=== PATIENT | female | born 1985 | race Caucasian/White ===

== ENCOUNTER 2016-09-15 00:07 | Inpatient (IN) | payer MEDICAID, OTHER ==
[~2016-09-15] VITALS: Ht 152.4 cm; Wt 72.2 kg
[2016-09-15 00:23] VITALS: Ht 152.4 cm; Wt 72.2 kg
[2016-09-15 00:24] VITALS: BP 98/53; PULSE 66; RESP 16
[2016-09-15] MEDS ORDERED: TERBUTALINE 1 MG/ML INJ SC ONE (01:00)
[2016-09-15 01:10] LABS: ADD UMIC YES; UR ASCORBIC ACID NEGATIVE (NEGATIVE); UR BACTERIA FEW /HPF (NONE SEEN); UR BILIRUBIN (Dip) NEGATIVE (NEGATIVE); UR BLOOD (Dip) NEGATIVE (NEGATIVE); UR CLARITY CLEAR (CLEAR); UR COLOR STRAW (YELLOW); UR GLUCOSE (Dip) NEGATIVE (NEGATIVE); UR KETONES (Dip) NEGATIVE (NEGATIVE); UR LEUKOCYTE ESTERASE (Dip) TRACE Leu/ul (NEGATIVE); UR NITRITE (Dip) NEGATIVE (NEGATIVE); UR RBC 0 /HPF (0-5); UR SPECIFIC GRAVITY (Dip) 1.003 (1.003-1.030); UR TOTAL PROTEIN (Dip) NEGATIVE (NEGATIVE); UR UROBILINOGEN (Dip) NEGATIVE (NEGATIVE)
[2016-09-15 01:26] LABS: BASOPHILS % 0.4 % (0.0-2.0); EOSINOPHILS # 0.2 10^3/ul (0.0-0.5); EOSINOPHILS % 3.3 % (0.0-7.0); HEMATOCRIT 28.7 % (37.0-47.0); HEMOGLOBIN 9.7 g/dl (12.0-16.0); LYMPHOCYTES # 1.8 10^3/ul (0.8-2.9); LYMPHOCYTES % 30.8 % (15.0-51.0); MEAN CORPUSCULAR HEMOGLOBIN 30.6 pg (29.0-33.0); MEAN CORPUSCULAR HGB CONC 33.8 g/dl (32.0-37.0); MEAN CORPUSCULAR VOLUME 90.5 fl (82.0-101.0); MEAN PLATELET VOLUME 10.7 fl (7.4-10.4); MONOCYTE # 0.6 10^3/ul (0.3-0.9); MONOCYTES % 10.9 % (0.0-11.0); NEUTROPHIL # 3.1 10^3/ul (1.6-7.5); NEUTROPHILS % 54.2 % (39.0-77.0); PLATELET COUNT 175 10^3/UL (140-415); RED BLOOD COUNT 3.17 10^6/ul (4.20-5.40); RED CELL DISTRIBUTION WIDTH 12.6 % (11.5-14.5); WHITE BLOOD COUNT 5.7 10^3/ul (4.8-10.8)
[2016-09-15] MEDS ORDERED: LACTATED RINGER'S 1,000 ML IV PRN ×2 (02:00→04:30)
--- NOTE | 2016-09-15 02:00 | PN ---
Triage Information Date/Time Reason for visit: Uterine contractions Weeks of Gestation 35 weeks /Para Diabetes: none Hypertention: none Objective Vital Signs Date Time Temp Pulse Resp B/P Pulse Ox O2 Delivery O2 Flow Rate FiO2 09/15/16 00:24 98.0 66 16 98/53 Room Air Heart Rate: 130's Heart Rate Comments Category I Contractions: >10 Minutes Apart Exam Cervix 2-3 cm Results/Medications Result Diagram: 09/15/16 0100 Results 24 hrs Laboratory Tests Test 09/15/16 00:30 09/15/16 01:00 Urine Color STRAW Urine Clarity CLEAR Urine pH 7.0 Urine Specific [place] 1.003 Urine Ketones NEGATIVE Urine Nitrite NEGATIVE Urine Bilirubin NEGATIVE Urine Urobilinogen NEGATIVE Urine Leukocyte Esterase TRACE A Urine Microscopic RBC 0 Urine Microscopic WBC 0 Urine Bacteria FEW A Urine Hemoglobin NEGATIVE Urine Glucose NEGATIVE Urine Total Protein NEGATIVE White Blood Count 5.7 Red Blood Count 3.17 L Hemoglobin 9.7 L Hematocrit 28.7 L Mean Corpuscular Volume 90.5 Mean Corpuscular Hemoglobin 30.6 Mean Corpuscular Hemoglobin Concent 33.8 Red Cell Distribution Width 12.6 Platelet Count 175 Mean Platelet Volume 10.7 H Neutrophils % 54.2 Lymphocytes % 30.8 Monocytes % 10.9 Eosinophils % 3.3 Basophils % 0.4 Nucleated Red Blood Cells % 0.0 Neutrophils # 3.1 Lymphocytes # 1.8 Monocytes # 0.6 Eosinophils # 0.2 Basophils # 0.0 Nucleated Red Blood Cells # 0.0 Disposition: Observation Assessment/Plan IV hydration Continue to monitor. JINNY WALKER MD Sep 15, 2016 02:00
--- NOTE | 2016-09-15 04:18 | TRIAGE ---
OB Triage Datetime Report Generated by CPN: 09/15/2016 04:17 Datetime: 09/15/2016 04:00 Labor Evaluation Frequency: X1 Monitor Mode: External Pattern: Normal: <= 5 Contractions in 10 Minutes Heart Rate FHR Baseline Rate: 130 Monitor Mode: External US FHR Baseline Changes: No Baseline Change Variability: Moderate 6-25 bpm Accelerations: 15X15 Category: Category I Datetime: 09/15/2016 03:54 Vaginal Exam Dilatation (cms): 3.5 Effacement (%): 50 Station: -3 Exam By: dr. delshad Datetime: 09/15/2016 03:30 Labor Evaluation Frequency: X1 Monitor Mode: External Pattern: Normal: <= 5 Contractions in 10 Minutes Heart Rate FHR Baseline Rate: 135 Monitor Mode: External US FHR Baseline Changes: No Baseline Change Variability: Moderate 6-25 bpm Decelerations: None Datetime: 09/15/2016 02:30 Labor Evaluation Frequency: X1 Monitor Mode: External Duration (sec)2399: 60 Pattern: Normal: <= 5 Contractions in 10 Minutes Heart Rate FHR Baseline Rate: 140 Monitor Mode: External US FHR Baseline Changes: No Baseline Change Variability: Moderate 6-25 bpm Decelerations: None Datetime: 09/15/2016 01:53 Vaginal Exam Dilatation (cms): 2.5 Effacement (%): 60 Station: -3 Exam By: DR.DELSHAD Datetime: 09/15/2016 01:30 Labor Evaluation Frequency: X3 Monitor Mode: External Duration (sec)2399: 60 Pattern: Normal: <= 5 Contractions in 10 Minutes Heart Rate FHR Baseline Rate: 145 Monitor Mode: External US FHR Baseline Changes: No Baseline Change Variability: Moderate 6-25 bpm Accelerations: 15X15 Decelerations: None Category: Category I Datetime: 09/15/2016 01:09 Time of Arrival: 09/15/2016 00:05 EGA: 35.5 Arrived By: Ambulatory Arrived From: Home Chief Complaint: LOWER ABDOMINAL PAIN Movement: Present Contractions: Irregular Time Contractions Began: 09/14/2016 22:00 Rupture of Membranes: Denies Vaginal Bleeding: None Vaginal Discharge: Denies Recent Sexual Intercouse: Denies Abdominal Trauma: Not Applicable Patient Complaints: Contractions Time Provider Notified: 09/15/2016 00:50 Provider Notified: Initial Plan: EFM, VE, UA _ URINE CULTURE, CBC, TERB IF NEEDED Datetime: 09/15/2016 00:31 Membrane Status: Intact Datetime: 09/15/2016 00:30 Vaginal Exam Dilatation (cms): 1.0 Effacement (%): 60 Station: -3 Datetime: 09/15/2016 00:27 Stage of : OB Triage Maternal Assessment Level of Consciousness: Fully Conscious DTR's/Clonus: DTRs 2+; No Clonus Headache: Denies Blurred Vision: No Respiratory Effort: Unlabored; Regular Rhythm; Equal Expansion Breath Sounds, Left: Clear and Equal Breath Sounds, Right: Clear and Equal Nausea/Vomiting: Denies RUQ Epigastric Pain: Denies Facial Edema: None Temperature Route: Axillary Fall Risk Assessment History of Falling: (0) No Secondary Diagnosis: (0) No Ambulatory Aid: (0) Bedrest/Nurse Assist IV Therapy: (0) No Gait: (0) Normal/Bedrest/Immobile Mental Status: (0) Oriented to Own Ability Fall Score: 0 Fall Risk Score Definition: No Risk: No action required Datetime: 09/15/2016 00:24 Labor Evaluation Frequency: X1 Monitor Mode: External Duration (sec)2399: 7 Quality: Mild Pattern: Normal: <= 5 Contractions in 10 Minutes Resting Tone [place]: Relaxed Heart Rate FHR Baseline Rate: 125 Monitor Mode: External US FHR Baseline Changes: No Baseline Change Variability: Moderate 6-25 bpm Accelerations: 15X15 Decelerations: None Category: Category I
[2016-09-15] MEDS ORDERED: OXYTOCIN 30 UNITS/LR 500 ML IV SCH ×2 (04:30)
[2016-09-15] MEDS ORDERED: IBUPROFEN 600 MG TAB PO PRN (04:30)
[2016-09-15] MEDS ORDERED: MAGNESIUM SULFATE 4 GM/100 ML 100 ML IV SCH (04:30)
[2016-09-15] MEDS ORDERED: LIDOCAINE 1% (MPF) 30 ML INJ INJ PRN (04:30)
[2016-09-15] MEDS ORDERED: CARBOPROST 250 MCG INJ IM PRN (04:30)
[2016-09-15] MEDS ORDERED: METHYLERGONOVINE 0.2 MG INJ IM PRN (04:30)
[2016-09-15] MEDS ORDERED: OXYTOCIN 30 UNITS/LR 500 ML IV PRN (04:30)
[2016-09-15] MEDS ORDERED: BUTORPHANOL 2 MG INJ IV PRN (04:30)
[2016-09-15] MEDS ORDERED: CA GLUCONATE (GM) 10% 10ML INJ IV PRN (04:30)
[2016-09-15] MEDS ORDERED: MISOPROSTOL 200 MCG TAB PR PRN (04:30)
[2016-09-15] MEDS: LACTATED RINGER'S 1,000 ML IV SCH ×2 (04:47→20:03)
[2016-09-15] MEDS: BETAMET NA PHOS/AC(6 MG/ML) 5ML INJ IM SCH (05:13)
[2016-09-15 05:24] LABS: INR 0.91; PARTIAL THROMBOPLASTIN TIME 27.1 Sec (25.0-35.0); PROTIME 12.3 Sec (12.2-14.2)
[2016-09-15] MEDS: MAGNESIUM SULFATE 20 GM/500 ML 500 ML IV SCH ×2 (05:24→14:56)
[2016-09-15] MEDS ORDERED: AMPICILLIN 2 GM/NS (PMX) 100 ML IV ONE (06:00)
[2016-09-15] MEDS ORDERED: AMPICILLIN 1 GM/NS (PMX) 50 ML IV SCH (10:00)
--- NOTE | 2016-09-15 19:14 | HP ---
Date/Time of Note Date/Time of Note DATE: 09/15/16 TIME: 19:06 OB - History Hx of Present Free Text/Dictation 31 y.o at 35w6d was admitted for PTL. VE 2-3cm uterine contractions every 10min 1st bmz given 0500 09/15/16 magnesium sulfate were also initiated Chief Complaint: uterine contractions Estimated Due Date: Oct 15, 2016 : 4 Para: 3 Spontaneous : 0 Therapeutic : 0 Care: Good Care Ultrasounds: Normal mid trimester US Obstetrical Complications: None Medical Complications: None Past Family/Social History * Past Medical, Surgical, Family and Obstetric Histories reviewed from chart. Blood Type: O+ Rubella: immune RPR/VDRL: Negative GBS Status: Unknown HBsAG: Negative OB Admission Exam Vital Signs Vital Signs Vital Signs Date Time Temp Pulse Resp B/P Pulse Ox O2 Delivery O2 Flow Rate FiO2 09/15/16 00:24 98.0 66 16 98/53 Room Air Physical Exam HEENT: WNL Heart: Rhythm Normal Lungs: Clear, Equal Abdomen: WNL Extremities: Normal Reflexes: Normal Cervical Dilatation: 3cm Effacement: 50% Station: -3 Membranes: Intact Amniotic Fluid: Unevaluable Heart Rate: 130's Accelerations: Accelerations Present Decelerations: No Decelerations Varibility: Moderate Contractions on Admission: 6-10 Minutes Apart Intensity: Mild Last 72 hours Lab Results CBC & BMP 09/15/16 01:00 Magnesium Level Test 09/15/16 11:56 09/15/16 18:11 Magnesium Level 5.1 *H 5.1 *H OB Assessment/Plan Reason for admission: labor Other Assessment: IUP 35w6d Other plan: bmzx2 mg sulfate JOHN NAYLOR MD Sep 15, 2016 19:13
[2016-09-15] MEDS: ACETAMINOPHEN 325 MG TAB PO PRN (21:11)
[2016-09-16] MEDS: MAGNESIUM SULFATE 20 GM/500 ML 500 ML IV SCH ×3 (00:14→20:47)
[2016-09-16] MEDS: BETAMET NA PHOS/AC(6 MG/ML) 5ML INJ IM SCH (05:48)
[2016-09-16] MEDS: LACTATED RINGER'S 1,000 ML IV SCH ×2 (08:25→23:43)
--- NOTE | 2016-09-16 19:53 | PN ---
Date/Time of Note Date/Time of Note DATE: 09/16/16 TIME: 19:50 OB Subjective Subjective Subjective no more uterine conrations OB Objective Objective Objective EFM reactive no sig uerine contration OB Assessment/Plan Other Assessment: IUP 36w1d PTL s/p bmzx2 plan will d/c magnesium sulfata in am JOHN NAYLOR MD Sep 16, 2016 19:53
[2016-09-16] MEDS: ACETAMINOPHEN 325 MG TAB PO PRN (23:42)
[2016-09-17] MEDS: LACTATED RINGER'S 1,000 ML IV SCH (06:21)
== END 2016-09-17 17:23 | disposition home or self-care (01) | DRG 780 ==
LOC: L-D 00:07 → OBT 00:07 → L-D 04:00
PROVIDERS: ADMIT Obstetrics & Gynecology; ATTEND Obstetrics & Gynecology
DX: O47.03 False labor before 37 completed weeks of gestation, third trimester (principal); Z3A.35 35 weeks gestation of pregnancy
CPT/HCPCS: 36415; 81001; 83735; 85025; 85610; 85730; 86592; 86900; 86901; 87086; 87340; 96360; 96372; G0463; J0290; J0702; J3105; J3475; J7120

== ENCOUNTER 2016-09-27 17:28 | Outpatient (CLI) | payer OTHER ==
[~2016-09-27] VITALS: Ht 152.4 cm; Wt 70.9 kg
[2016-09-27 17:54] VITALS: BP 109/58; PULSE 70; RESP 20
--- NOTE | 2016-09-27 18:22 | RADRPT ---
PROCEDURE: US biophysical profile. CLINICAL INDICATION: Leaking amniotic fluid. TECHNIQUE: Multiple sonographic images of the uterus were obtained. The images were revi ewed on a PACS workstation. COMPARISON: No prior studies are available for comparison. FINDINGS: There is a single live intrauterine gestation. heart rate is 136 beats per minute. The position is cephalic. The placenta is anterior right grade II with no abruption or previa. The FARHANA is 11.0 cm. (Normal = 5-20 cm.) Breathing Movement: 2 Gross Body Movement: 2 Tone: 2 Qualitative Amniotic Fluid Volume: 2 TOTAL: 8 IMPRESSION: 1. The biophysical score is 8/8. RPTAT: QQ .Harpreet Dumont MD, MD Date Time Electronically viewed and signed by .Harpreet Dumont MD, on 09/27/2016 18:22 .R/
[2016-09-27 18:43] VITALS: Ht 152.4 cm; Wt 70.9 kg
--- NOTE | 2016-09-27 19:24 | PN ---
Triage Information Date/Time 09/27/16 Reason for visit: SROM Weeks of Gestation 37w2d /Para Hypertention: none Additional information leaking fluid since tuesday Objective Vital Signs Date Time Temp Pulse Resp B/P Pulse Ox O2 Delivery O2 Flow Rate FiO2 09/27/16 17:54 99.0 70 20 109/58 98 Room Air Heart Rate: 120's Contractions: >10 Minutes Apart Exam ROM plus heg spec exam neg for pooling Results/Medications Results 24 hrs Laboratory Tests Test 09/27/16 18:35 Membranes Rupture NEGATIVE Imaging Results BPP 09/14 FARHANA 11.3 Disposition: Discharge Assessment/Plan RTH PRN WITH ROUTINE INSTRUCTIONS JOHN NAYLOR MD Sep 27, 2016 19:23
== END 2016-09-27 19:33 | disposition home or self-care (01) ==
LOC: OBT 17:28 → L-D 17:28 → OBT 19:33
PROVIDERS: ATTEND Obstetrics & Gynecology
DX: O47.1 False labor at or after 37 completed weeks of gestation (principal); Z3A.37 37 weeks gestation of pregnancy
CPT/HCPCS: 76818; 84112; G0463

== ENCOUNTER 2016-10-08 12:00 | Inpatient (IN) | payer OTHER ==
[~2016-10-08] VITALS: Ht 152.4 cm; Wt 71.0 kg
[2016-10-08 14:45] VITALS: BP 100/50; PULSE 63; RESP 20
[2016-10-08 14:48] VITALS: Ht 152.4 cm; Wt 71.0 kg
[2016-10-08] MEDS: LACTATED RINGER'S 1,000 ML IV SCH ×2 (14:58→22:15)
[2016-10-08] MEDS ORDERED: LACTATED RINGER'S 1,000 ML IV PRN (15:00)
[2016-10-08] MEDS ORDERED: CARBOPROST 250 MCG INJ IM PRN (15:00)
[2016-10-08] MEDS ORDERED: LIDOCAINE 1% (MPF) 30 ML INJ INJ PRN (15:00)
[2016-10-08] MEDS ORDERED: OXYTOCIN 30 UNITS/LR 500 ML IV SCH ×3 (15:00)
[2016-10-08] MEDS ORDERED: IBUPROFEN 600 MG TAB PO PRN (15:00)
[2016-10-08] MEDS ORDERED: METHYLERGONOVINE 0.2 MG INJ IM PRN (15:00)
[2016-10-08] MEDS ORDERED: MINERAL OIL LIGHT 10 ML VIAL TOP PRN (15:00)
[2016-10-08] MEDS ORDERED: OXYTOCIN 30 UNITS/LR 500 ML IV PRN (15:00)
[2016-10-08] MEDS ORDERED: MISOPROSTOL 200 MCG TAB PR PRN (15:00)
[2016-10-08 16:11] LABS: BASOPHILS % 0.3 % (0.0-2.0); EOSINOPHILS # 0.1 10^3/ul (0.0-0.5); EOSINOPHILS % 0.9 % (0.0-7.0); HEMATOCRIT 31.1 % (37.0-47.0); HEMOGLOBIN 10.3 g/dl (12.0-16.0); LYMPHOCYTES # 1.2 10^3/ul (0.8-2.9); LYMPHOCYTES % 18.7 % (15.0-51.0); MEAN CORPUSCULAR HEMOGLOBIN 29.8 pg (29.0-33.0); MEAN CORPUSCULAR HGB CONC 33.1 g/dl (32.0-37.0); MEAN CORPUSCULAR VOLUME 89.9 fl (82.0-101.0); MEAN PLATELET VOLUME 10.9 fl (7.4-10.4); MONOCYTE # 0.5 10^3/ul (0.3-0.9); MONOCYTES % 7.5 % (0.0-11.0); NEUTROPHILS % 72.3 % (39.0-77.0); PLATELET COUNT 184 10^3/UL (140-415); RED BLOOD COUNT 3.46 10^6/ul (4.20-5.40); RED CELL DISTRIBUTION WIDTH 13.3 % (11.5-14.5); WHITE BLOOD COUNT 6.4 10^3/ul (4.8-10.8)
[2016-10-08 16:27] LABS: INR 0.91; PARTIAL THROMBOPLASTIN TIME 26.3 Sec (25.0-35.0); PROTIME 12.2 Sec (12.2-14.2)
[2016-10-09] MEDS: LACTATED RINGER'S 1,000 ML IV SCH ×2 (06:16→09:15)
--- NOTE | 2016-10-09 06:18 | HP ---
Date/Time of Note Date/Time of Note DATE: 10/09/16 TIME: 06:11 OB - History Hx of Present Free Text/Dictation 30y.o at 39weeks for induction of labor. during the course had episodes of labor which was resolved. previous all ending up delivered at , GBS neg VE 4cm/70%/-2 admitted for pitocin aug Chief Complaint: induction Estimated Due Date: Oct 15, 2016 : 4 Para: 3 Spontaneous : 0 Therapeutic : 0 Care: Good Care Ultrasounds: Normal mid trimester US Obstetrical Complications: None Medical Complications: None Past Family/Social History * Past Medical, Surgical, Family and Obstetric Histories reviewed from chart. Blood Type: O+ Rubella: immune RPR/VDRL: Negative GBS Status: Negative HBsAG: Negative OB Admission Exam Vital Signs Vital Signs Vital Signs Date Time Temp Pulse Resp B/P Pulse Ox O2 Delivery O2 Flow Rate FiO2 10/08/16 14:45 98.0 63 20 100/50 97 Room Air Physical Exam HEENT: WNL Heart: Rhythm Normal Lungs: Clear, Equal Abdomen: WNL Extremities: Normal Reflexes: Normal Cervical Dilatation: 4cm Effacement: 75% Station: -2 Membranes: Intact Amniotic Fluid: Unevaluable Heart Rate: 120's Accelerations: Accelerations Present Decelerations: No Decelerations Varibility: Moderate Contractions on Admission: 6-10 Minutes Apart Intensity: Mild Last 72 hours Lab Results CBC & BMP 10/08/16 14:10 OB Assessment/Plan Reason for admission: induction of labor Induction Method: per Pitocin Protocol JOHN NAYLOR MD Oct 09, 2016 06:17
--- NOTE | 2016-10-09 07:03 | LDN ---
Date/Time of Note Date/Time of Note DATE: 10/09/16 TIME: 07:01 Delivery Summary desire to have tubal sterilization Weeks of Gestation 39weeks Placenta Delivered: Spontaneously Meconium: none Episiotomy: No Perineal laceration: 1 Laceration repair: 000 ch gut Anesthesia type: None Estimated blood loss: 50 Sponge & Needle done & correct: Yes All needle counts correct: Yes Any foreign bodies felt in the: No Problems: Infant Delivery Information Sex Infant Sex: female Apgars 1 Minute: 9 5 Minute: 10 Suctioning Nose & mouth suctioned at mason: Yes Delee suction performed: No Umbilical Cord Umbilical cord with: 3 Vessels Cord presentations: no nuchal cord Cord Blood was obtained: Yes Mother & Baby Disposition Disposition Mom & Baby to Maternity; Good: Yes Mom transferred to: Other () Baby to NICU: No JOHN NAYLOR MD Oct 09, 2016 07:03
[2016-10-09] MEDS ORDERED: OXYTOCIN 30 UNITS/LR 500 ML IV SCH (09:00)
[2016-10-09] MEDS ORDERED: CEFAZOLIN 2 GM/50 ML (PMX) 50 ML IV SCH (09:00)
[2016-10-09] MEDS ORDERED: morphine SULFATE/PF (10 MG/10 ML) INJ ONE (10:12)
[2016-10-09] MEDS ORDERED: MEPERIDINE 25 MG INJ IV PRN (12:00)
[2016-10-09] MEDS ORDERED: KETOROLAC 30 MG INJ IV PRN (12:00)
[2016-10-09] MEDS ORDERED: DIPHENHYDRAMINE 50 MG INJ IV PRN (12:00)
[2016-10-09] MEDS ORDERED: FENTAnyl 50 MCG/ML VIAL IV PRN (12:00)
[2016-10-09] MEDS ORDERED: morphine (1 MG/ML) 10ML SYRINGE IV PRN (12:00)
[2016-10-09] MEDS ORDERED: ONDANSETRON 4 MG INJ IV PRN (12:00)
--- NOTE | 2016-10-09 12:42 | OPR ---
Operative Report Planned Procedure Procedure date Oct 09, 2016 Procedure(s) bilateral partial salphingectomy Performed by: JOHN NAYLOR MD Anesthesiologist: LISA LONGO MD Pre-procedure diagnosis status post desire to have tubal sterilization Anesthesia Type: spinal Anesthesia type other with duramorph Procedure Description Under satisfactory [] anesthesia, the patient was prepped and draped and placed in a supine position small subumbilical incision was made and fascia was incised in the lengh of incision and then entered peritoneal cavity digitallymincision. right follopian tube was identified tube was grasped with david forceps and created loop of tube at the avascular area of mesosalphinx , this loop of the tube was doubly ligated with 0 plain and loop of the tube excised and tubal lumen was cauterized. and left follopian tube was trying to be located with multiple attempts, finally asked patient whether she had any surgical procedure which was not known to me,response was that when she was young one of physician told her one of the ovay is missing. continue to search of ovary on left side and unable to locate the fimbria after confirming the anatomical structure of vicinity.It was decided that structure mostlikely follopian tube but not continue to fimbriated end will be excised just as we do roxi method then pedicle was doubly ligated with 0 plain. and checked whether it has lumen which did have lumens, and also patient was informed the situation and advise to use other back up contraceptive method. needle and instrument count reported to be correct. Abdominal peritoneum closed with [] 0 vicryl in purstring manner. Fascia closed with [0vicryl], and skin closed with 000 monocrylin subcuticular manner. Estimated blood loss [10 mL. Urine bag contained []mL of urine Post-Procedure Post-procedure diagnosis abnormal left adnexa Findings: Live Baby [], Apgars [] and [], weight [], position [], [] presentation []cord. Specimen removed: Yes Specimen description bilateral portions of floopian tubes Complications: None Pt Condition post procedure: stable Disposition: PACU Physician Certification I, the undersigned physician, hereby certify that I have discussed the procedure described in this consent form with this patient (or the patient's legal marketing sales representative), including: * The risk and benefits of the procedure; * Any adverse reactions that may reasonably be expected to occur; * Any alternative efficacious methods of treatment which may be medically viable ; * The potential problems that may occur during recuperation; * Potential for blood transfusion and associated risks/benefits; and * Any research or economic interest I may have regarding this treatment. I further certify that the patient/legally responsible person was encouraged to ask question and that all questions were answered. JOHN NAYLOR MD Oct 09, 2016 12:41
[2016-10-09 14:00] VITALS: BP 106/52; PULSE 50; RESP 16
[2016-10-09] MEDS ORDERED: LANOLIN 7 GM TUBE TOP PRN (14:30)
[2016-10-09] MEDS ORDERED: OXYTOCIN 30 UNITS/LR 500 ML IV PRN (14:30)
[2016-10-09] MEDS ORDERED: MISOPROSTOL 200 MCG TAB PR PRN (14:30)
[2016-10-09] MEDS ORDERED: WITCH HAZEL/GLYCERIN PAD PR PRN (14:30)
[2016-10-09] MEDS ORDERED: METHYLERGONOVINE 0.2 MG INJ IM PRN (14:30)
[2016-10-09] MEDS ORDERED: OXYCODONE/ASPIRIN (4.88/325) TAB PO PRN ×2 (14:30)
[2016-10-09] MEDS ORDERED: ZOLPIDEM 5 MG TAB PO PRN (14:30)
[2016-10-09] MEDS ORDERED: CARBOPROST 250 MCG INJ IM PRN (14:30)
[2016-10-09 16:00] VITALS: BP 97/59; PULSE 59; RESP 16
[2016-10-09] MEDS: IBUPROFEN 600 MG TAB PO SCH (18:03)
[2016-10-09] MEDS: BENZOCAINE 20% 56 ML SPRAY TOP PRN (18:03)
[2016-10-09 20:00] VITALS: BP 86/45; PULSE 57
[2016-10-09] MEDS: SENNA/DOCUSATE NA (8.6MG/50MG) TAB PO SCH (22:25)
[2016-10-10] VITALS: BP 103/57; RESP 18
[2016-10-10 04:00] VITALS: BP 96/52; PULSE 62; RESP 18
[2016-10-10] MEDS: IBUPROFEN 600 MG TAB PO SCH ×5 (06:12→23:52)
[2016-10-10 08:16] LABS: BASOPHILS % 0.4 % (0.0-2.0); EOSINOPHILS # 0.1 10^3/ul (0.0-0.5); EOSINOPHILS % 2.1 % (0.0-7.0); HEMOGLOBIN 8.9 g/dl (12.0-16.0); LYMPHOCYTES # 1.2 10^3/ul (0.8-2.9); MEAN CORPUSCULAR HEMOGLOBIN 29.6 pg (29.0-33.0); MEAN CORPUSCULAR VOLUME 89.7 fl (82.0-101.0); MEAN PLATELET VOLUME 10.8 fl (7.4-10.4); MONOCYTE # 0.4 10^3/ul (0.3-0.9); MONOCYTES % 7.6 % (0.0-11.0); NEUTROPHILS % 66.5 % (39.0-77.0); PLATELET COUNT 159 10^3/UL (140-415); RED BLOOD COUNT 3.01 10^6/ul (4.20-5.40); RED CELL DISTRIBUTION WIDTH 13.4 % (11.5-14.5); WHITE BLOOD COUNT 5.3 10^3/ul (4.8-10.8)
[2016-10-10 08:35] VITALS: BP 92/51; PULSE 60; RESP 16
[2016-10-10] MEDS: SENNA/DOCUSATE NA (8.6MG/50MG) TAB PO SCH ×2 (11:54→23:52)
[2016-10-10 16:00] VITALS: BP 106/52; PULSE 50; RESP 16
[2016-10-10 20:00] VITALS: BP 90/50; PULSE 20; RESP 20
--- NOTE | 2016-10-10 20:19 | PN ---
Date/Time of Note Date/Time of Note DATE: 10/10/16 TIME: 20:17 OB Subjective Subjective Subjective c/o afterpain OB Objective Objective Objective vss afebrile fundus fim lochia min calf neg for tenderness OB Assessment/Plan Other Assessment: stable post #! and BTL Other plan: d/s home in am JOHN NAYLOR MD Oct 10, 2016 20:19
[2016-10-11 04:00] VITALS: BP 98/51; PULSE 57; RESP 18
[2016-10-11] MEDS: IBUPROFEN 600 MG TAB PO SCH ×2 (06:39→12:23)
--- NOTE | 2016-10-11 07:26 | PD.PPDC ---
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
--- NOTE | 2016-10-11 08:06 | DS ---
Date/Time of Note Date/Time of Note DATE: 10/11/16 TIME: 08:04 Obstetrical Discharge Record Final Diagnosis Final Diagnosis: Term delivered Vaginal Delivery Obstetrical Delivery: Bilateral Tubal Ligation Complications Augmentation: Yes Condition on Discharge Physical Assessment Last Vitals: vss afebrile Voiding: Yes Bowel Movement: No Breast: Soft, non-tender Fundus: Firm Abdomen and Incision: wound dry abdomen soft Calf Tenderness: No Patient Condition: Stable JOHN NAYLOR MD Oct 11, 2016 08:05
[2016-10-11 09:00] VITALS: BP 98/50; PULSE 68; RESP 16
[2016-10-11] MEDS ORDERED: DIPHTH/TET/ACEL PERTUSS (ADULT) 0.5 ML VIAL IM* ONE (09:00)
[2016-10-11] MEDS: SENNA/DOCUSATE NA (8.6MG/50MG) TAB PO SCH (10:22)
[2016-10-11] MEDS: BENZOCAINE 20% 56 ML SPRAY TOP PRN (10:22)
== END 2016-10-11 14:00 | disposition home or self-care (01) | DRG 767 ==
LOC: L-D 12:13 → PP1 10-09 13:28
PROVIDERS: ADMIT Obstetrics & Gynecology; ATTEND Obstetrics & Gynecology
PROC: 0UB70ZZ Excision of Bilateral Fallopian Tubes, Open Approach (ICD-10-PCS; 2016-10-09)
PROC: 0HQ9XZZ Repair Perineum Skin, External Approach (ICD-10-PCS; 2016-10-09)
PROC: 10E0XZZ Delivery of Products of Conception, External Approach (ICD-10-PCS; principal; 2016-10-09 10:30)
PROC: 3E0234Z Introduction of Serum, Toxoid and Vaccine into Muscle, Percutaneous Approach (ICD-10-PCS; 2016-10-11)
DX: O70.0 First degree perineal laceration during delivery (principal); Z37.0 Single live birth; Z30.2 Encounter for sterilization; Z3A.39 39 weeks gestation of pregnancy
CPT/HCPCS: 85025; 85610; 85730; 86592; 86900; 86901; 87340; 88302; 90715; J0690; J2274; J2590; J7120